=== PATIENT | female | born 1950 | race Caucasian/White ===

== ENCOUNTER 2020-08-12 00:36 | Emergency (ER) | payer OTHER ==
[2020-08-12 00:46] VITALS: TEMP 98.9; BMI 29.2
[2020-08-12 02:45] LABS: BASO % 0.2 % (0-2.0); EOS % 0.1 % (0-4.5); HEMATOCRIT 37.9 % (32.4-45.2); HEMOGLOBIN 12.5 GM/dL (10.7-15.3); LYMPH % 11.9 % (8-40); MCH 30.1 pg (25.7-33.7); MCHC 32.8 g/dl (32.0-36.0); MEAN CELL VOLUME 91.8 fl (80-96); MEAN PLT VOLUME 8.9 fl (7.5-11.1); MONO % 6.7 % (3.8-10.2); NEUT % 81.1 % (42.8-82.8); PLATELET COUNT 284 K/MM3 (134-434); RBC 4.13 M/mm3 (3.60-5.2); RDW 13.1 % (11.6-15.6); WHITE BLOOD COUNT 12.3 K/mm3 (4.0-10.0)
[2020-08-12 03:11] LABS: POTASSIUM 4.8 mmol/L (3.5-5.1)
[2020-08-12 03:14] LABS: ALBUMIN 3.5 g/dl (3.4-5.0); BLOOD UREA NITROGEN 17.5 mg/dL (7-18); CALCIUM 9.2 mg/dL (8.5-10.1)
[2020-08-12 03:16] LABS: CREATININE 0.6 mg/dL (0.55-1.3)
[2020-08-12 03:19] LABS: BILIRUBIN,TOTAL 0.2 mg/dL (0.2-1); TOT PROT 7.4 g/dl (6.4-8.2)
[2020-08-12 04:40] VITALS: BP 134/71; PULSE 95
== END 2020-08-12 05:27 | disposition home or self-care (01) ==
LOC: JER 00:36
DX: R40.4 Transient alteration of awareness (principal); F12.920 Cannabis use, unspecified with intoxication, uncomplicated
CPT/HCPCS: 36415; 70450-TC; 80053; 82550; 83690; 83880; 84484; 85025; 93005; 93010; 99285-25